=== PATIENT | female | born 1945 | race Caucasian/White ===

== ENCOUNTER 2019-08-12 07:47 | Day surgery (SDC) | payer MEDICARE, BC ==
[~2019-08-12] VITALS: Ht 170.2 cm; Wt 86.5 kg
[2019-08-12] VITALS (10 sets, daily range): BP systolic 144–162; BP diastolic 73–98
[~2019-08-12 07:47] MED LIST: ASPI-1009 PO; CA C1TAB69 PO; CLOP75TA35 PO; CYAN100087 PO; FENO145T38 PO; GABA-330 PO; LOP25T PO; PANT40TA39 PO; PRAV40TA65 PO; SITA1TAB2 PO
[2019-08-12] MEDS ORDERED: diphenhydrAMINE 25mg capsule PO PRN (08:05)
[2019-08-12] MEDS ORDERED: normal saline 1,000 ML IV SCH (08:05)
[2019-08-12] MEDS ORDERED: GABA-769 PO (08:25)
[2019-08-12] MEDS ORDERED: ALLO100T PO (08:25)
[2019-08-12] MEDS ORDERED: ROSU10TA2 PO (08:25)
[2019-08-12] MEDS ORDERED: SERT100T PO (08:25)
[2019-08-12] MEDS ORDERED: LIRA0.6P SQ (08:25)
[2019-08-12] MEDS ORDERED: HYDR-4353 PO (08:25)
[2019-08-12] MEDS ORDERED: DULO-31 PO ×2 (08:25)
[2019-08-12 08:39] LABS: BASOPHILS # (AUTO) 0.1 X10'3 (0-0.2); BASOPHILS % (AUTO) 0.9 % (0-1); EOSINOPHILS # (AUTO) 0.1 X10'3 (0-0.9); EOSINOPHILS % (AUTO) 1.3 % (0-6); HEMOGLOBIN 14.1 g/dl (12.0-16.0); LYMPHOCYTES # (AUTO) 1.2 X10'3 (1.1-4.8); LYMPHOCYTES % (AUTO) 13.5 % (21-51); MEAN CORPUSCULAR HEMOGLOBIN 32.3 PG (27.0-31.0); MEAN CORPUSCULAR HGB CONC 33.7 g/dL (33.0-36.5); MONOCYTES # (AUTO) 0.7 X10'3 (0-0.9); MONOCYTES % (AUTO) 7.4 % (2-12); NEUTROPHILS # (AUTO) 6.8 X10'3 (1.8-7.7); NEUTROPHILS % (AUTO) 76.9 % (42-75); PLATELET COUNT 211 X10'3 (140-440); RED BLOOD COUNT 4.37 X10'6 (4.20-5.60); WHITE BLOOD COUNT 8.9 X10'3 (4.5-11.0)
[2019-08-12] MEDS ORDERED: midazolam 2 mg/2 ml injection ONE (08:42)
[2019-08-12 08:43] LABS: ALBUMIN 2.9 G/DL (3.4-5.0); ANION GAP 7 (8-16); BLOOD UREA NITROGEN 34 MG/DL (7-18); BUN/CREATININE RATIO 20.5 (6.6-38.0); CALCIUM 9.1 MG/DL (8.5-10.1); CHLORIDE 106 MMOL/L (99-107); CREATININE 1.66 MG/DL (0.40-0.90); GLUCOSE 115 MG/DL (70-104); MAGNESIUM 1.8 MG/DL (1.5-2.4); POTASSIUM 4.6 MMOL/L (3.5-5.1); SODIUM 141 MMOL/L (135-145); TOTAL CARBON DIOXIDE 27.6 MMOL/L (24-32); eGFR 30 ML/MIN
[2019-08-12] MEDS ORDERED: fentaNYL/PF 50MCG/1 ML 2ML syringe ONE (08:43)
[2019-08-12] MEDS ORDERED: iohexol 350MG/ML 100ml bottle IV ONE (08:43)
[2019-08-12] MEDS ORDERED: LIDOcaine 1% 30ml preserv. free vial ONE (08:43)
[2019-08-12] MEDS ORDERED: sodium bicarbonate (8.4%) inj. 75 ML in dextrose 5%-water 500 ML IV SCH (09:10)
[2019-08-12] MEDS ORDERED: sodium bicarbonate (8.4%) inj. 75 ML in dextrose 5%-water 500 ML IV ONE (09:10)
== END 2019-08-12 13:20 | disposition home or self-care (01) ==
LOC: SSTAY O 07:47
PROVIDERS: ATTEND Internal Medicine Cardiovascular Disease
DX: R53.83 Other fatigue (principal); I44.2 Atrioventricular block, complete; E78.49 Other hyperlipidemia; J44.9 Chronic obstructive pulmonary disease, unspecified; G47.33 Obstructive sleep apnea (adult) (pediatric); E11.40 Type 2 diabetes mellitus with diabetic neuropathy, unspecified; E11.22 Type 2 diabetes mellitus with diabetic chronic kidney disease; N18.4 Chronic kidney disease, stage 4 (severe); F17.210 Nicotine dependence, cigarettes, uncomplicated; Z85.3 Personal history of malignant neoplasm of breast; Z79.899 Other long term (current) drug therapy; Z79.82 Long term (current) use of aspirin; Z90.710 Acquired absence of both cervix and uterus; Z98.890 Other specified postprocedural states; Z95.0 Presence of cardiac pacemaker; Z88.0 Allergy status to penicillin
CPT/HCPCS: 36415; 80048; 83735; 85025; 85610; 93005; 93458; 99152; 99153; C1769; C1894; J1644; J2001; J2250; J3010; J7030; Q0163; Q9967; A4620; A6258; C1760